=== PATIENT | female | born 1980 | race Caucasian/White ===

== ENCOUNTER 2019-12-09 09:44 | Emergency (ER) | payer MEDICAID ==
[~2019-12-09] VITALS: Ht 160 cm; Wt 63.0 kg
--- NOTE | 2019-12-09 09:53 | NUR ---
PT AMBULATED TO ER BED 04
[2019-12-09 09:54] VITALS: BP 130/94
--- NOTE | 2019-12-09 10:03 | NUR ---
39 y/o f c/c ankle pain x tuesday. per pt unknown cause, woke up in am and discomfort begun. pain 05/30. cms/rom intact. pt nka. no hx. no rx. no n/v/d. side rail x1. family at bedside.
[2019-12-09 11:33] VITALS: BP 104/64
--- NOTE | 2019-12-09 11:33 | NUR ---
Patient discharged with v/s stable. Written and verbal after care instructions given and explained. Patient verbalized understanding. Ambulatory with steady gait. All questions addressed prior to discharge. Advised to follow up with PMD.
== END 2019-12-09 11:33 | disposition home or self-care (01) ==
LOC: MED 09:44
DX: M25.571 Pain in right ankle and joints of right foot (principal); X58.XXXA Exposure to other specified factors, initial encounter; Y93.89 Activity, other specified; Y92.89 Other specified places as the place of occurrence of the external cause; Y99.8 Other external cause status
CPT/HCPCS: 73610; 99283; Q0092